=== PATIENT | male | born 1970 | race Caucasian/White ===

== ENCOUNTER 2018-03-20 06:26 | Inpatient (IN) | payer MEDICARE ==
[~2018-03-20] VITALS: Ht 170.2 cm; Wt 105.7 kg
[~2018-03-20 06:26] MED LIST: ATIVAN0.5 MG PO; BACTRIM DS TAB1 EACH PO; CIPROFLOXACIN500 M3; CLEOCIN HCL150 MG PO; DOXYCYCLINE 10100 M1 PO; FLAGYL500 MG; GLUCOSAMINE1000 MG; IBUPROFEN 200200 M1; INDOMETHACIN 2525 MG PO; MIRALAX255 GM; NORCO 5-325 TA1 EAC1 PO; NORCO 5-325 TA1 EACH; NORCO 5-325 TA1 EACH PO; PERCOCET 10-321 EACH PO; PERCOCET 5-3251 EACH PO; PREDNISONE 10 M10 MG PO; PRILOSEC 20 MG20 MG PO; PROAIR HFA8.5 GM IH; TAMSULOSIN HCL0.4 MG PO; VICODIN 5-5001 EACH PO; VICOPROFEN 2001 EACH PO; XANAX 0.25 MG0.25 MG PO; ZOLOFT PO
[2018-03-20 06:28] VITALS: BP 123/89
[2018-03-20 06:47] LABS: ABSOLUTE BASOPHILS 0.1 thou/uL (0.0-0.2); ABSOLUTE EOSINOPHILS 0.1 thou/uL (0.0-0.7); ABSOLUTE LYMPHOCYTES 2.7 thou/uL (0.8-5.3); ABSOLUTE MONOCYTES 0.7 thou/uL (0.0-1.2); ABSOLUTE NEUTROPHILS 13.1 thou/uL (1.6-8.1); BASOPHILS 0.5 %; EOSINOPHILS 0.5 %; HEMATOCRIT 54.6 % (42.0-52.0); HEMOGLOBIN 18.4 gm/dL (14.0-18.0); MCH 29.1 pg (26.0-34.0); MCHC 33.7 g/dL (28.0-37.0); MCV 86.3 fL (80.0-100.0); MONOCYTES 4.3 %; MPV 8.5 fl. (7.2-11.1); NUCLEATED RBCS 0 /100WBC; PLATELET COUNT* 334 thou/uL (150-400); POLYS 78.7 %; RBC 6.33 mil/uL (4.50-6.00); RDW-CV 13.2 % (10.5-14.5); WBC 16.7 thou/uL (4.0-11.0)
[2018-03-20 07:03] LABS: CALCIUM 11.1 mg/dL (8.5-10.1); CREATININE 1.6 mg/dL (0.6-1.3); POTASSIUM 3.7 mmol/L (3.5-5.1)
[2018-03-20 07:10] LABS: ALBUMIN 4.7 g/dL (3.4-5.0); TOTAL BILIRUBIN 0.5 mg/dL (<0.1-1.0); TROPONIN-I LEVEL 0.06 ng/mL (<0.06)
[2018-03-20 10:30] VITALS: BP 143/97
[2018-03-20 10:34] VITALS: BP 136/87
--- NOTE | 2018-03-20 17:19 | EKG ---
[place] [address] ELECTROCARDIOGRAM REPORT Name: JANETH GEORGES Room: [address] ADM IN ..#: [id number] Admission: 03/20/18 Attend Phys: Gibran De Leon MD Discharge: Date of : 66 Report #: [id number] THIS REPORT FOR: //name// [facility] ED Test Date: 2018-03-20 Test Time: 06:34:28 Pat Name: JANETH GEORGES Department: Room: [facility] Gender: M Superintendent Production: GHISLAINE : 1970 Requested By: Farhad Asher Order Number: [id number] MD: Oscar Gee Measurements Intervals [place] Rate: 85 P: 38 MT: 133 QRS: 42 QRSD: 91 T: 47 QT: 399 QTc: 475 Interpretive Statements Sinus rhythm Abnormal R-wave progression, early transition Compared to ECG 03/08/2011 22:02:23 T-wave abnormality no longer present Prolonged QT interval no longer present Electronically Signed On 03-20-2018 17:19:36 CDT by Oscar Gee [email or web address] <ELECTRONICALLY SIGNED> By: Oscar Gee MD, FACC 03/20/18 1719 0634 0634 Oscar Gee MD, FAC /EPI
--- NOTE | 2018-03-20 18:32 | NUR ---
PATIENT ARRIVED ON UNIT AT 1030. SLEEPING, HARD TO AROSE. WILL OPEN EYES WITH VERBAL CAMANDS AND FOLLOWS CAMANDS, DIRECTLY GOES BACK TO SLEEP. P[place]INT HAS BEEN SLEEPING ALL DAY, ABLE TO WAKE UP FOR QUESTIONS AND CARE NEEDED. WAITING ON UA, NO URINE OUTPUT YET. A&OX4, 2L O2 VIA NC, IV LEFT AC FEILD STICK, FLUIDS INFUSSING. NG TUBE TO RIGHT NARE AT 65 TO LIS. 1100 OUTPUT THROUGH NG TUBE. BROWN IN COLOR. UP WITH ASSIST, PATIENT HAS NOT BEEN UP TODAY, SLEEPING ALL DAY. NO C/O PAIN/N/V. STATES "WHY AM I SO SLEEPY" EDUCATED THAT THEY GAVE MAXIMUM DOSE IN ER TO PLACE NG TUBE, VERBALIZES UNDERSTANDING. NO OTHER CONCERNS AT THIS TIME. APPROPRIATE AND COOPORATIVE WITH CARE.
[2018-03-20 23:03] VITALS: BP 142/86
[2018-03-20 23:15] LABS: URINE BILIRUBIN NEGATIVE (Negative); URINE BLOOD NEGATIVE (Negative); URINE CLARITY CLEAR; URINE COLOR YELLOW; URINE GLUCOSE-RANDOM NEGATIVE (Negative); URINE KETONES NEGATIVE (Negative); URINE LEUKOCYTES-REFLEX NEGATIVE (Negative); URINE NITRITE-REFLEX NEGATIVE (Negative); URINE PROTEIN TRACE (Negative); URINE SPECIFIC GRAVITY >= 1.030 (1.005-1.030); URINE UROBILINOGEN 0.2 E.U./dl (0.2-1.0)
[2018-03-20 23:21] LABS: AMP/METHAMP POSITIVE (Negative); BARBITURATES Negative (Negative); BENZODIAZEPINES Negative (Negative); COCAINE Negative (Negative); METHADONE Negative (Negative); OPIATES POSITIVE (Negative); PCP Negative (Negative); THC Negative (Negative)
[2018-03-21 04:52] LABS: ABSOLUTE LYMPHOCYTES 1.8 thou/uL (0.8-5.3); ABSOLUTE MONOCYTES 1.3 thou/uL (0.0-1.2); ABSOLUTE NEUTROPHILS 13.3 thou/uL (1.6-8.1); BASOPHILS 0.3 %; EOSINOPHILS 0.3 %; HEMATOCRIT 51.2 % (42.0-52.0); HEMOGLOBIN 17.1 gm/dL (14.0-18.0); MCH 29.1 pg (26.0-34.0); MCHC 33.3 g/dL (28.0-37.0); MCV 87.4 fL (80.0-100.0); MONOCYTES 7.7 %; NUCLEATED RBCS 0 /100WBC; PLATELET COUNT* 263 thou/uL (150-400); POLYS 80.7 %; RBC 5.86 mil/uL (4.50-6.00); RDW-CV 13.2 % (10.5-14.5); WBC 16.5 thou/uL (4.0-11.0)
[2018-03-21 05:05] LABS: POTASSIUM 4.1 mmol/L (3.5-5.1)
--- NOTE | 2018-03-21 05:15 | NUR ---
ASSESSMENT COMPLETE. PT SLEPT MOST OF THE NIGHT. NG TO RIGHT NARE ON LIS, SEE I&O FOR OUTPUT. IV FLUIDS INFUSING. PT DENIES PAIN AND N/V. PT USES URINAL NEEDED. PT IS UP WITH STANDBY ASSIST. SEE ASSESSMENT AND VITALS FOR OTHER DETAILS. BED ALARM ON, CALL LIGHT WITHIN REACH. WILL CONTINUE PLAN OF CARE
[2018-03-21 07:35] VITALS: BP 110/69
--- NOTE | 2018-03-21 14:36 | NUR ---
PATIENT A&OX4, MORE AWAKE AND ALERT TODAY. ROOM AIR, IV LEFT AC FLUIDS INFUSSING. UP WITH STAND BY ASSIST, STEADY GAIT. NO C/O PAIN/N/V. NG TUBE RIGHT NARE AT 65 AT LIS. 1000 OUTPUT FROM 1000 TO 1400. PATIENT STATED HE COULD NOT STAY, HE NEEDED TO GO HOME. EDUCATED ON IMPORTANCE OF STARY WITH SBO AND RISK AND COMPLICATIONS THAT MAY ACURE. PATIENT AGREES, AND FULLY UNDERSTANDS. PATIENT PULLED OUT NG TUBE AND PERIPHERAL IV. SIGNED AMA PAPERS; EDUCATED AGIAN. PATIENT DOES NOT HAVE A RIDE. CALLED EMERGENCY CONTACT, HAD TO LEAVE A MESSAGE, WILL CONTINUE TO TRY AND CONTACT. PATIENT LEFT UNIT AT 1355 AMBULATORY WITH SHORTS AND WALLET. PHYSICAIN AWARE PATIENT LEFT AMA.
== END 2018-03-21 13:55 | disposition left against medical advice (07) | DRG 393 ==
LOC: M.ERS 06:26 → M.TBA-ER 08:56 → M.3W 08:56
PROVIDERS: Family Medicine; ADMIT Internal Medicine
DX: K55.019 Acute (reversible) ischemia of small intestine, extent unspecified (principal); G92 Toxic encephalopathy; R65.11 Systemic inflammatory response syndrome (SIRS) of non-infectious origin with acute organ dysfunction; K56.609 Unspecified intestinal obstruction, unspecified as to partial versus complete obstruction; N17.9 Acute kidney failure, unspecified; M19.90 Unspecified osteoarthritis, unspecified site; D72.829 Elevated white blood cell count, unspecified; K57.90 Diverticulosis of intestine, part unspecified, without perforation or abscess without bleeding; F32.9 Major depressive disorder, single episode, unspecified; F17.210 Nicotine dependence, cigarettes, uncomplicated; E83.52 Hypercalcemia; G47.30 Sleep apnea, unspecified; E86.0 Dehydration; T50.905A Adverse effect of unspecified drugs, medicaments and biological substances, initial encounter; Y92.89 Other specified places as the place of occurrence of the external cause; Z90.49 Acquired absence of other specified parts of digestive tract; Z88.6 Allergy status to analgesic agent; Z79.2 Long term (current) use of antibiotics; Z79.899 Other long term (current) drug therapy

== ENCOUNTER 2018-11-15 06:46 | Emergency (ER) | payer MEDICARE ==
[~2018-11-15] VITALS: Ht 170.2 cm; Wt 105.3 kg
[2018-11-15] MEDS ORDERED: PREDNISONE50 MG PO (08:03)
[2018-11-15] MEDS ORDERED: NORCO 5-325 TA1 EACH PO (08:03)
[2018-11-15] MEDS ORDERED: KEFLEX500 M1 PO (08:03)
[2018-11-15 08:28] VITALS: BP 139/87
== END 2018-11-15 08:28 | disposition home or self-care (01) ==
LOC: M.ERS 06:46
DX: L02.415 Cutaneous abscess of right lower limb (principal); L73.2 Hidradenitis suppurativa; M25.461 Effusion, right knee; G47.30 Sleep apnea, unspecified; Z88.1 Allergy status to other antibiotic agents

== ENCOUNTER 2018-12-27 13:36 | Emergency (ER) | payer MEDICARE ==
[~2018-12-27] VITALS: Ht 170.2 cm; Wt 99.8 kg
[~2018-12-27 13:36] MED LIST changes: +KEFLEX500 M1 PO; +PREDNISONE50 MG PO
[2018-12-27] MEDS ORDERED: BACTRIM DS TAB1 EACH PO (14:21)
[2018-12-27 14:30] VITALS: BP 129/85
== END 2018-12-27 14:38 | disposition home or self-care (01) ==
LOC: M.ERS 13:36
DX: L02.411 Cutaneous abscess of right axilla (principal); L02.412 Cutaneous abscess of left axilla; F17.200 Nicotine dependence, unspecified, uncomplicated; G47.30 Sleep apnea, unspecified; F32.9 Major depressive disorder, single episode, unspecified; Z98.52 Vasectomy status; Z88.1 Allergy status to other antibiotic agents